=== PATIENT | female | born 1995 | race Caucasian/White ===

== ENCOUNTER 2019-01-20 16:08 | Emergency (ER) | payer OTHER, SELFPAY ==
[2019-01-20 16:09] VITALS: BP 107/78; PULSE 85; RESP 17; TEMP 36.8; O2SAT 98; BMI 25.2
--- NOTE | 2019-01-20 17:38 | ED.VISSUMM ---
- ER Visit Summary Date of Service: 01/20/19 Chief Complaint: Right eyebrow laceration History of Present Illness: The patient is a 23 F past history of depression and anxiety. She is a college student who was walking and thought the door was open because it was very clean and she walks squaring of the glass. It did not break but she hit her right forehead and lacerated her right eyebrow. No other injuries. No LOC. She is on no blood thinners. She denies any severe headache or neck pain. Physical Examination: Young female no acute distress with 2 friends in the room. Vital signs are stable afebrile. HEENT exam she is a linear 2-1/2 cm laceration horizontal across the long axis of the right eyebrow. Pupils are round reactive light. He does open and will need to be repaired. Otherwise no other facial trauma. Dentition intact. C-spine nontender. Trachea midline. Heart, lungs, chest, abdomen, and extremities are all neurologically intact and nontender with normal range of motion. Neurologic exam is normal. NIH is 0. GCS of 15. She is not acting concussed. Test Results: None Emergency Department Course and Treatment: Received your note: Right eyebrow laceration with ER repair. 2-1/2 cm. Let to the wound. Subcu lidocaine. Shur-Clens clean. Explored. Washed with saline. Closed using # 3 simple interrupted 5-0 Ethilon sutures. Proper hemostasis wound closures obtained. Patient tolerated procedure well. Instructed on wound care. Suture removal in 5 days. Treatment Plan: Wound care. Tylenol for pain. Head injury instructions. Disposition: Discharge Impression: Right eyebrow laceration 2.5 centimeters with ER repair Minor head injury This note was generated with [employer] dictation software. It may contain incorrect words, spelling, and punctuation that were not noted in review of the chart prior to signing ED Disposition - Plan for ED Patient: Disposition: Home or Assisted Living Instructions: ED Head Injury Closed, ED Laceration Facial Sutr Tape Referrals: [facility] Doctor,Out of [Primary Care Provider] - 3-5 Days suture removal Additional Instructions: Keep the wound clean. You may get it wet but dry it off well. Apply antibiotic ointment daily. Ice to the wound to decrease swelling. Tylenol and Motrin for pain. Suture removal in 3-5 days.
--- NOTE | 2019-01-20 17:43 | ED.DCSUM_ITS ---
- ER Visit Summary Date of Service: 01/20/19 Chief Complaint: Right eyebrow laceration History of Present Illness: The patient is a 23 F past history of depression and anxiety. She is a college student who was walking and thought the door was open because it was very clean and she walks squaring of the glass. It did not break but she hit her right forehead and lacerated her right eyebrow. No other injuries. No LOC. She is on no blood thinners. She denies any severe headache or neck pain. Physical Examination: Young female no acute distress with 2 friends in the room. Vital signs are stable afebrile. HEENT exam she is a linear 2-1/2 cm laceration horizontal across the long axis of the right eyebrow. Pupils are round reactive light. He does open and will need to be repaired. Otherwise no other facial trauma. Dentition intact. C-spine nontender. Trachea midline. Heart, lungs, chest, abdomen, and extremities are all neurologically intact and nontender with normal range of motion. Neurologic exam is normal. NIH is 0. GCS of 15. She is not acting concussed. Test Results: None Emergency Department Course and Treatment: Received your note: Right eyebrow laceration with ER repair. 2-1/2 cm. Let to the wound. Subcu lidocaine. Shur-Clens clean. Explored. Washed with saline. Closed using # 3 simple interrupted 5-0 Ethilon sutures. Proper hemostasis wound closures obtained. Patient tolerated procedure well. Instructed on wound care. Suture removal in 5 days. Treatment Plan: Wound care. Tylenol for pain. Head injury instructions. Disposition: Discharge Impression: Right eyebrow laceration 2.5 centimeters with ER repair Minor head injury This note was generated with [employer] dictation software. It may contain incorrect words, spelling, and punctuation that were not noted in review of the chart prior to signing ED Disposition - Plan for ED Patient: Disposition: Home or Assisted Living Instructions: ED Head Injury Closed, ED Laceration Facial Sutr Tape Referrals: [facility] Doctor,Out of [Primary Care Provider] - 3-5 Days suture removal Additional Instructions: Keep the wound clean. You may get it wet but dry it off well. Apply antibiotic ointment daily. Ice to the wound to decrease swelling. Tylenol and Motrin for pain. Suture removal in 3-5 days.
--- NOTE | 2019-01-20 17:45 | DCINST.ED_ITS ---
ED Disposition - Plan for ED Patient: Disposition: Home or Assisted Living Instructions: ED Head Injury Closed, ED Laceration Facial Sutr Tape Prescriptions: Sertraline HCl [Zoloft] 100 mg PO DAILY #30 tab Referrals: [facility] Doctor,Out of [Primary Care Provider] - 3-5 Days suture removal Additional Instructions: Keep the wound clean. You may get it wet but dry it off well. Apply antibiotic ointment daily. Ice to the wound to decrease swelling. Tylenol and Motrin for pain. Suture removal in 3-5 days.
== END 2019-01-20 18:47 | disposition home or self-care (01) ==
PROVIDERS: Emergency Provider Emergency Medicine
DX: S01.111A Laceration without foreign body of right eyelid and periocular area, initial encounter (principal); F32.9 Major depressive disorder, single episode, unspecified; F41.9 Anxiety disorder, unspecified; Z79.899 Other long term (current) drug therapy; W22.09XA Striking against other stationary object, initial encounter; Y93.01 Activity, walking, marching and hiking; Y92.214 College as the place of occurrence of the external cause; Y99.8 Other external cause status
CPT/HCPCS: 12011; 99283

== ENCOUNTER 2019-02-26 16:23 | Emergency (ER) | payer MEDICAID, OTHER, SELFPAY ==
[2019-02-26 16:24] VITALS: BP 111/64; PULSE 89; RESP 18; TEMP 36; O2SAT 98; BMI 25.0
--- NOTE | 2019-02-26 16:45 | CT_ITS ---
STUDY: CT BRAIN WITHOUT CONTRAST REASON FOR EXAM: Female, 23 years old. Headache. Prior trauma. RADIATION DOSAGE (If Supplied By Facility): CTDIvol = ( 44.99 ) mGy, DLP = ( 762.36 ) mGycm TECHNIQUE: Transaxial CT imaging of the brain was performed without administration of intravenous contrast material. Individualized dose optimization techniques were used for this CT. COMPARISON: None. FINDINGS: There is no acute bleed or infarct. There are normal white matter tracts. The ventricles are normal in configuration. There is no hydrocephalus. The visualized paranasal sinuses are clear. The mastoid air cells are well aerated. There is no skull fracture. CT/Brain/Head without Contrast IMPRESSION: No acute intracranial abnormality. Electronically Signed: Zeb Sarah, at 17:17 EDT Tel , Service support ,
--- NOTE | 2019-02-26 16:46 | ED.VIS.GEN ---
History of Present Illness Chief Complaint: Head Injury Informant: Patient Narrative: Presents for evaluation of postconcussive symptoms. Patient seen January 20 for head injury when she ran into a glass door. Had laceration repair of the right eyebrow at that time. Since then has been having waxing and waning difficulty concentrating, sleeping. Symptoms would worsen with activities. She has trouble at times with memory. There has been no new injuries. She has seen the [facility] initially for her suture removal again 2 days ago. She is referred to PCP tomorrow. There is difficulty getting her to a neurologist due to her being a student at a [employer]. Reports mother in [place] is trying to situate her with a neurologist back home when she graduates in the upcoming week. No neck pain. No visual changes. No previous similar symptoms in the past. Denies any possibility of . Prior similar symptoms: No Past Medical History - Allergies and Home Meds Allergies/Adverse Reactions: Allergies No Known Allergies Allergy (Verified 02/26/19 16:33) Primary Care Physician: Care Physician,No Primary [Primary Care Provider] - Smoking Status: Never smoker Review of Systems General: Denies: Chills, Fever, Sweats Eyes: Denies: Visual changes - bilaterally, Diplopia ENT: Denies: Rhinorrhea, Sore throat Cardiovascular: Denies: Chest pain, Palpitations Respiratory: Denies: Dyspnea, Cough, Dyspnea on exertion Gastrointestinal: Denies: Abdominal pain, Nausea, Vomiting, Diarrhea, Melena, Hematochezia Genitourinary: Denies: Dysuria, Hematuria, Frequency Musculoskeletal: Denies: Back pain, Extremity Pain Skin: Denies: Rash, Wounds Neurological: Reports: Headache. Denies: Weakness, Numbness Physical Exam Vital Signs/Narrative: Vital Signs Temp Pulse Resp BP Pulse Ox 02/26/19 16:24 96.8 F L 89 18 111/64 98 Inital Vital Signs reviewed: Yes General: Well nourished, Well developed, No Acute Distress Head: Normocephalic, Atraumatic Eyes: Perrl, EOMI ENT: Moist mucous membranes, No rhinorrhea Neck: Supple, Nontender, - - No meningismus Cardiovascular: Regular rate, Regular rhythm, No murmurs Respiratory: No distress, CTA bilaterally, Chest nontender Abdomen: Soft, Nontender, Nondistended, Normal bowel sounds Back: Nontender, Normal Inspection Extremities: Nontender, No edema Skin: Normal color, No rash Neurological: Alert, Oriented x3, Cranial nerves II-XII grossly intact, Normal Strength, Normal Sensation Psychological: Normal affect, Normal Mood Diagnostic/Tx/Re-eval - Medical Decision Making Patient no focal neurological deficits. History exam concerns for postconcussive syndrome from her original head injury. There has been no new injuries. She has not had any imaging studies are follow-up with any specialist. Discussed obtaining a CT scan for structural evaluation for which she agreed and understands the risks with radiation. Results were negative. Discussed concussion precautions with rest when symptoms occur. She will use Tylenol as needed. She also requests refill her for Zoloft which she timed inappropriately to get this refilled and will not be home for a week. She will be given a 14-day supply. She was seen neurology as an outpatient back home. All questions were answered. ED Disposition - Plan for ED Patient: Disposition: Home or Assisted Living Diagnosis: Postconcussive syndrome Instructions: ED Concussion Prescriptions: Sertraline HCl [Zoloft] 100 mg PO DAILY #14 tablet Referrals: Care Physician,No Primary [Primary Care Provider] - Additional Instructions: CT brain, negative. Follow up with neurology back home.
--- NOTE | 2019-02-26 16:50 | ED.DCSUM_ITS ---
History of Present Illness Chief Complaint: Head Injury Informant: Patient Narrative: Presents for evaluation of postconcussive symptoms. Patient seen January 20 for head injury when she ran into a glass door. Had laceration repair of the right eyebrow at that time. Since then has been having waxing and waning difficulty concentrating, sleeping. Symptoms would worsen with activities. She has trouble at times with memory. There has been no new injuries. She has seen the [facility] initially for her suture removal again 2 days ago. She is referred to PCP tomorrow. There is difficulty getting her to a neurologist due to her being a student at a [employer]. Reports mother in [place] is trying to situate her with a neurologist back home when she graduates in the upcoming week. No neck pain. No visual changes. No previous similar symptoms in the past. Denies any possibility of . Prior similar symptoms: No Past Medical History - Allergies and Home Meds Allergies/Adverse Reactions: Allergies No Known Allergies Allergy (Verified 02/26/19 16:33) Primary Care Physician: Care Physician,No Primary [Primary Care Provider] - Smoking Status: Never smoker Review of Systems General: Denies: Chills, Fever, Sweats Eyes: Denies: Visual changes - bilaterally, Diplopia ENT: Denies: Rhinorrhea, Sore throat Cardiovascular: Denies: Chest pain, Palpitations Respiratory: Denies: Dyspnea, Cough, Dyspnea on exertion Gastrointestinal: Denies: Abdominal pain, Nausea, Vomiting, Diarrhea, Melena, Hematochezia Genitourinary: Denies: Dysuria, Hematuria, Frequency Musculoskeletal: Denies: Back pain, Extremity Pain Skin: Denies: Rash, Wounds Neurological: Reports: Headache. Denies: Weakness, Numbness Physical Exam Vital Signs/Narrative: Vital Signs Temp Pulse Resp BP Pulse Ox 02/26/19 16:24 96.8 F L 89 18 111/64 98 Inital Vital Signs reviewed: Yes General: Well nourished, Well developed, No Acute Distress Head: Normocephalic, Atraumatic Eyes: Perrl, EOMI ENT: Moist mucous membranes, No rhinorrhea Neck: Supple, Nontender, - - No meningismus Cardiovascular: Regular rate, Regular rhythm, No murmurs Respiratory: No distress, CTA bilaterally, Chest nontender Abdomen: Soft, Nontender, Nondistended, Normal bowel sounds Back: Nontender, Normal Inspection Extremities: Nontender, No edema Skin: Normal color, No rash Neurological: Alert, Oriented x3, Cranial nerves II-XII grossly intact, Normal Strength, Normal Sensation Psychological: Normal affect, Normal Mood Diagnostic/Tx/Re-eval - Medical Decision Making Patient no focal neurological deficits. History exam concerns for postconcus sive syndrome from her original head injury. There has been no new injuries. She has not had any imaging studies are follow-up with any specialist. Discussed obtaining a CT scan for structural evaluation for which she agreed and understands the risks with radiation. Results were negative. Discussed concussion precautions with rest when symptoms occur. She will use Tylenol as needed. She also requests refill her for Zoloft which she timed inappropriately to get this refilled and will not be home for a week. She will be given a 14- day supply. She was seen neurology as an outpatient back home. All questions were answered. ED Disposition - Plan for ED Patient: Disposition: Home or Assisted Living Diagnosis: Postconcussive syndrome Instructions: ED Concussion Prescriptions: Sertraline HCl [Zoloft] 100 mg PO DAILY #14 tablet Referrals: Care Physician,No Primary [Primary Care Provider] - Additional Instructions: CT brain, negative. Follow up with neurology back home.
[2019-02-26 18:02] VITALS: BP 124/89; PULSE 101; RESP 16; O2SAT 98
== END 2019-02-26 18:03 | disposition home or self-care (01) ==
PROVIDERS: Emergency Provider Emergency Medicine
DX: F07.81 Postconcussional syndrome (principal)
CPT/HCPCS: 70450; 99282